=== PATIENT | male | born 1970 | race Caucasian/White ===

== ENCOUNTER 2019-11-30 16:31 | Emergency (ER) | payer OTHER ==
--- NOTE | 2019-11-30 16:42 | ED.PDOC ---
History of Present Illness - General Time Seen by Provider: 11/30/19 16:41 - History of Present Illness Initial Comments: 49 yo male with hx of ventral hernia comes in with upper adbominal pain. states sneezed 3 times after mowing lawn, shortly after got sharp pain and felt a mass by his hernia. went to pcp who could not reduce hernia, so came to er. no n/v. no diarrhea, no black or bloody bm. no prior abdominal surgeries. Review of Systems - Review of Systems Constitutional: Denies: chills, fever EENTM: Denies: blurred vision, ear pain, throat pain, mouth pain Respiratory: Denies: cough, short of breath Cardiology: Denies: chest pain, palpitations Gastrointestinal/Abdominal: States: abdominal pain. Denies: diarrhea, nausea, vomiting Genitourinary: Denies: discharge, dysuria, frequency Musculoskeletal: Denies: back pain, joint pain, muscle pain Skin: Denies: change in color, rash Neurological: Denies: headache, numbness Endocrine: Denies: increased thirst, increased urine, unexplained weight loss Hematologic/Lymphatic: Denies: easy bleeding, easy bruising Past Medical History (General) - Patient Medical History Hx Seizures: No Hx Stroke: No Hx Dementia: No Hx Asthma: No Hx Congestive Heart Failure: No Hx Pacemaker: No Hx Renal Disease: No Surgical History: no surgical history - Social History Hx Tobacco Use: No Hx Alcohol Use: No Hx Substance Use: No - Activities of Daily Living Patient Lives Alone: No - Family Medical History - Family History Mother Family History: Unknown Living Status: Unknown Physical Exam - Physical Exam General Appearance: Alert, Anxious, No apparent distress Eyes, Ears, Nose, Throat Exam: PERRL/EOMI, normal ENT inspection Neck: non-tender, full range of motion, supple, normal inspection Respiratory: chest non-tender, lungs clear, normal breath sounds, no respiratory distress, no accessory muscle use Cardiovascular/Chest: normal peripheral pulses, regular rate, rhythm, no edema, no gallop, no JVD, no murmur Peripheral Pulses: 2+ Gastrointestinal/Abdominal: normal bowel sounds, soft, no organomegaly, no pulsatile mass, other - epigastric ventral hernia with mass, painful to palpation, unable to reduce with gentle pressure. Rectal Exam: deferred Back Exam: normal inspection Extremity: normal range of motion, other - stable gait. 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 blood work and CT scan was done to rule out strangulated hernia. Ice pack given to patient, patient placed in trendelenburg. EKG shows NSR hr 83, no evidence of acute ischemia. 11/30/19 19:53 Discharge Stat Laboratory Results WBC 6.9 K/mm3 (4.8-10.8) 11/30/19 16:50 RBC 5.13 M/mm3 (4.70-6.10) 11/30/19 16:50 Hgb 15.1 gm/dL (14.0-18.0) 11/30/19 16:50 Hct 44.6 % (42.0-52.0) 11/30/19 16:50 MCV 87.1 fl (80.0-94.0) 11/30/19 16:50 MCH 29.5 pg (27.0-31.0) 11/30/19 16:50 MCHC 33.9 g/dL (33.0-37.0) 11/30/19 16:50 RDW 14.3 % (11.5-14.5) 11/30/19 16:50 Plt Count 305 K/mm3 (130-400) 11/30/19 16:50 MPV 7.6 fl (7.40-10.4) 11/30/19 16:50 Absolute Neuts (auto) 4.10 K/uL (1.8-6.8) 11/30/19 16:50 Absolute Lymphs (auto) 1.70 K/uL (1.0-3.4) 11/30/19 16:50 Absolute Monos (auto) 0.40 K/uL (0.2-0.8) 11/30/19 16:50 Absolute Eos (auto) 0.60 K/uL (0.0-0.4) H 11/30/19 16:50 Absolute Basos (auto) 0.10 K/uL (0.0-0.1) 11/30/19 16:50 Neutrophils % 59.8 % (42.0-78.0) 11/30/19 16:50 Lymphocytes % 24.6 % (20.0-50.0) 11/30/19 16:50 Monocytes % 6.2 % (2.0-9.0) 11/30/19 16:50 Eosinophils % 8.1 % (1.0-5.0) H 11/30/19 16:50 Basophils % 1.3 % (0.0-2.0) 11/30/19 16:50 Sodium 141 mmol/L (135-145) 11/30/19 16:50 Potassium 4.0 mmol/L (3.6-5.0) 11/30/19 16:50 Chloride 104 mmol/L (101-111) 11/30/19 16:50 Carbon Dioxide 26 mmol/L (21-31) 11/30/19 16:50 Anion Gap 15.0 (12-18) 11/30/19 16:50 BUN 19 mg/dL (7-18) H 11/30/19 16:50 Creatinine 1.01 mg/dL (0.6-1.3) 11/30/19 16:50 BUN/Creatinine Ratio 18.8 (10-20) 11/30/19 16:50 Random Glucose 102 mg/dL (70-105) 11/30/19 16:50 Serum Osmolality 283.7 mOsm/L (275-295) 11/30/19 16:50 Calcium 9.1 mg/dL (8.4-10.2) 11/30/19 16:50 Total Bilirubin 0.6 mg/dL (0.2-1.0) 11/30/19 16:50 AST 24 IU/L (10-42) 11/30/19 16:50 ALT 36 IU/L (10-60) 11/30/19 16:50 Alkaline Phosphatase 58 IU/L (42-121) 11/30/19 16:50 Serum Total Protein 7.6 gm/dL (6.4-8.2) 11/30/19 16:50 Albumin 4.5 g/dl (3.2-5.5) 11/30/19 16:50 Globulin 3.1 gm/dL (2.3-3.5) 11/30/19 16:50 Albumin/Globulin Ratio 1.5 (1.1-1.9) 11/30/19 16:50 Lipase 23 U/L (22-51) 11/30/19 16:50 CT scan shows Small fat-containing ventral hernia but without evidence of acute inflammation or bowel obstruction. no other acute intrabdominal pathology. Patient was given 2 mg IV dilaudid. he was allowed to rest with ice. After several attempts the hernia was reduced. an abdominal binder was placed. The data reviewed when caring for this patient included: nurse notes, prior records, etc. The history and assessments from nurses notes were reviewed and considered, and the patient's home medication list was also reviewed and considered. My assessment and the results of testing completed here in the ED were discussed with the patient/family. All questions were answered, and they express understanding of my assessment and the plan. They have been instructed to return if their symptoms worsen, and have been asked to follow up with their primary care physician to recheck today's presenting complaint. return precautions given. vss, patient was discharged home in stable condition. Josefa Fallon DO #[id number] 12/01/19 02:30 Departure - Departure Clinical Impression: Abdominal pain Qualifiers: Abdominal location: upper abdomen, unspecified Qualified Code(s): R10.10 - Upper abdominal pain, unspecified ICD-10 Supporting Text: ventral hernia Time of Disposition: 19:53 Disposition: Discharge to Home or Self Care Departure Forms: ED Discharge - Pt. Copy, Patient Portal Self Enrollment Instructions: Abdominal Hernia Repair (DC) Referrals: CASTRO DRISCOLL IV, NP [Primary Care Provider] - 1-2 Days Tomas Felix MD [Active Staff] - 1-5 Days Home Medications: Ambulatory Orders NK 11/30/19
[2019-11-30] MEDS ORDERED: MORPHINE SULFATE INJ 10 MG/ML VIAL IV ONE (17:06)
[2019-11-30] MEDS ORDERED: ONDANSETRON INJ 4 MG/2 ML VIAL IV ONE (17:45)
[2019-11-30] MEDS ORDERED: HYDROmorphone HCL INJ 2 MG/ML VIAL IV ONE ×2 (17:45→19:12)
--- NOTE | 2019-11-30 17:53 | CT ---
CT ABDOMEN PELVIS WITH IV CONTRAST HISTORY: Hernia. COMPARISON: None. TECHNIQUE: CT scan of the abdomen and pelvis was performed with IV contrast. This exam was performed according to our departmental dose-optimization program, which includes automated exposure control, adjustment of the mA and/or kV according to patient size and/or use of iterative reconstruction technique. FINDINGS: The lung bases are clear. No pleural or pericardial effusions. There is no hiatal hernia. The liver, spleen, pancreas, gallbladder, adrenal glands, and kidneys are unremarkable. No hydronephrosis or urinary stones are seen. The pelvic organs are also unremarkable. The stomach and duodenum are unremarkable. No small bowel obstruction. No evidence of acute appendicitis. There are scattered tics in the sigmoid colon but no evidence of acute inflammation. No adenopathy, free fluid, or free air is identified. The aorta is normal in caliber. No acute bony findings are seen. There is a small fat-containing ventral hernia but without inflammatory changes in the hernia sac. IMPRESSION: Small fat-containing ventral hernia but without evidence of acute inflammation or bowel obstruction. Electronically signed by: Keegan Anand MD 11/30/2019 5:52 PM CDT
[2019-11-30 18:30] VITALS: O2SAT 98
[2019-11-30] MEDS ORDERED: LIDOCAINE 1% 10 ML VIAL INJ ONE (18:45)
[2019-11-30] MEDS ORDERED: PHENYTOIN SODIUM INJ 100 MG/2 ML VIAL IV ONE (18:55)
[2019-11-30 20:41] VITALS: BP 126/79; TEMP 98.3
== END 2019-11-30 20:20 | disposition home or self-care (01) ==
LOC: ER 16:31
DX: K43.9 Ventral hernia without obstruction or gangrene (principal); R10.10 Upper abdominal pain, unspecified
CPT/HCPCS: 36415; 74177; 80053; 83690; 85025; J1170; J2270; J2405